=== PATIENT | female | born 1985 | race Native Hawaiian/Other Pacific Islander ===

== ENCOUNTER 2021-06-03 13:43 | Outpatient (CLI) | payer OTHER | END 2021-06-03 20:29 | disposition home or self-care (01) | LOC: US 13:43 | PROVIDERS: ATTEND Nurse Practitioner Primary Care | DX: N63.20 Unspecified lump in the left breast, unspecified quadrant (principal) | CPT/HCPCS: G0279 ==

== ENCOUNTER 2022-02-17 08:42 | Outpatient (CLI) | payer OTHER | END 2022-02-17 19:34 | disposition home or self-care (01) | LOC: MAMMO 08:42 | PROVIDERS: ATTEND Family Medicine | DX: N63.20 Unspecified lump in the left breast, unspecified quadrant (principal); N64.59 Other signs and symptoms in breast | CPT/HCPCS: G0279 ==